=== PATIENT | female | born 2005 | race Two or more races ===

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

== ENCOUNTER 2024-10-16 17:03 | Emergency (ER) | payer MEDICAID ==
[~2024-10-16] VITALS: Ht 160 cm; Wt 74.3 kg
--- NOTE | 2024-10-16 17:25 | ED.PDOC ---
History of Present Illness HPI Comments 19F presents to the ER w/ no prior Hx associated to the c/c of a rash. Pt reports on having a rash on her neck/upper chest last night and has not gone away. The pt assumes on it being an allergic reaction. Pt notes that she has not changed anything in the last couple of days and even took Benadryl. Denies ch ills, fever, N/V/D< SOB, CP or other associated symptoms, modifiers, or recent injuries at this time. 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 History Family History Family History: Reviewed,noncontributory to illness, Unknown Social History Smoker: Non-Smoker Alcohol: Denies ETOH Use Drugs: Denies Drug Use Lives In: Home Constitutional: denies: chills, diaphoresis, fatigue, fever, malaise, sweats, weakness, others EENTM: denies: blurred vision, double vision, ear bleeding, ear discharge, ear drainage, ear pain, ear ringing, eye pain, eye redness, hearing loss, mouth pain, mouth swelling, nasal discharge, nose bleeding, nose congestion, nose pain, photophobia, tearing, throat pain, throat swelling, voice changes, others Respiratory: denies: cough, hemoptysis, orthopnea, SOB at rest, shortness of breath, SOB with excertion, stridor, wheezing, others Cardiovascular: denies: chest pain, dizzy spells, diaphoresis, Dyspnea on exertion, edema, irregular heart beat, left arm pain, lightheadedness, palpitations, PND, syncope, others Gastrointestinal: denies: abdomen distended, abdominal pain, blood streaked bowels, constipated, diarrhea, dysphagia, difficulty swallowing, hematemesis, melena, nausea, poor appetite, poor fluid intake, rectal bleeding, rectal pain, vomiting, others Genitourinary: denies: abnormal vagina bleeding, burning, dyspareunia, dysuria, flank pain, frequency, hematuria, incontinence, pain, , vagina discharge, urgency, others Neurological: denies: dizziness, fainting, headache, left sided numbness, left sided weakness, numbness, paresthesia, pre-existing deficit, right sided numbness, right sided weakness, seizure, speech problems, tingling, tremors, weakness, others Musculoskeletal: denies: back pain, gout, joint pain, joint swelling, muscle pain, muscle stiffness, neck pain, others Integumetry: reports: rash; denies: bruises, change in color, change in hair/nails, dryness, laceration, lesions, lumps, wounds, others Allergic/Immunocompromised: denies: Difficulty Healing, Frequent Infections, Hives, Itching, others Hematologic/Lymphatic: denies: anemia, blood clots, easy bleeding, easy bruising, swollen glands, others Endocrine: denies: excessive hunger, excessive sweating, excessive thirst, excessive urination, flushing, intolerance to cold, intolerance to heat, unexplained weight gain, unexplained weight loss, others Psychiatric: denies: anxiety, bipolar disorder, depression, hopeless, panic disorder, schizophrenia, sleepless, suicidal, others All Other Systems: Reviewed and Negative Physical Exam Exam Comments Throat clear, no tongue swelling, mouth clear, redness to from rash on the neck and upper chest General Appearance: No Apparent Distress, Normal HEENT: Normal ENT Inspection, Pharynx Normal, TMs Normal Neck: Full Range of Motion, Non-Tender, Normal, Normal Inspection Respiratory: Chest Non-Tender, Lungs Clear, No Accessory Muscle Use, No Respiratory Distress, Normal Breath Sounds Cardiovascular: No Edema, No JVD, No Murmur, No Gallop, Normal Peripheral Pulses, Regular Rate/Rhythm Breast Exam: Deferred Gastrointestinal: No Organomegaly, Non Tender, No Pulsatile Mass, Normal Bowel Sounds, Soft Genitalia: Deferred Pelvic: Deferred Rectal: Deferred Extremities: No calf tenderness, Normal capillary refill, Normal inspection, Normal range of motion, Non-tender, No pedal edema Musculoskeletal : Apperance: Normal Neurologic: Alert, mems process engineer II-XII nml as Tested, No Motor Deficits, Normal Affect, Normal Mood, No Sensory Deficits Cerebellar Function: Normal Reflexes: Normal Skin: Dry, Rash (On the neck/upper chest), Warm Lymphatic: No Adenopathy Was a procedure done? Was a procedure done?: No Differential Dx Considerations may include: urticaria, cellulitis, anaphylaxis, eczema, parasitosis, insect envenomation X-Ray, Labs, Meds, VS Vital Signs Date Time Temp Pulse Resp B/P (MAP) Pulse Ox O2 Delivery O2 Flow Rate FiO2 10/16/24 17:07 97.6 60 16 121/47 (71) 0 Time of 1ST Reevaluation: 17:45 Reevaluation 1ST: Unchanged Time of 2ND Reevaluation: 17:34 Reevaluation 2ND: Improved Patient Education/Counseling: Diagnosis, Treatment, Prognosis, Need For Follow Up Family Education/Counseling: No Family Present Departure 1 Departure Time of Disposition: 17:35 Impression: Primary Impression: Urticaria Disposition: 01 HOME / SELF CARE / HOMELESS Condition: Good e-Prescriptions Famotidine (PEPCID TABLET) 20 Mg Tb 1 TAB PO BID for 3 Days, #6 TAB 5 Refills Prov: ANAYA HOFFMANN MD 10/16/24 Diphenhydramine Hcl (Benadryl Allergy) 25 Mg Cap 2 CAP PO Q6HP PRN for 3 Days, #12 CAP 2 Refills Prov: ANAYA HOFFMANN MD 10/16/24 Prednisone (Prednisone) 20 Mg Tab 20 MG PO DAILY for 3 Days, #3 MG Prov: ANAYA HOFFMANN MD 10/16/24 Discharged With: Self Critical Care Note Critical Care Time?: No Stability Stability form required: No I personally scribed for ANAYA HOFFMANN MD ([email or web address]) on 10/16/24 at 17:24. Electronically submitted by Siddharth Maynard ([email or web address]). ANAYA HOFFMANN MD Oct 16, 2024 17:24
[2024-10-16] MEDS ORDERED: PRED20TA2 PO (17:37)
[2024-10-16] MEDS ORDERED: DIPH25CA66 PO (17:37)
[2024-10-16] MEDS ORDERED: FAMO20TA10 PO (17:37)
[2024-10-16] MEDS: DexAMETHasone 4 MG TAB PO ONE (17:42)
[2024-10-16] MEDS: diphenhdrAMINE HCL 25 MG CAP PO ONE (17:42)
[2024-10-16 17:47] VITALS: BP 103/60; PULSE 60; RESP 16; TEMP 98; O2SAT 98
== END 2024-10-16 17:53 | disposition home or self-care (01) ==
LOC: ER 17:03
DX: L50.9 Urticaria, unspecified (principal)
CPT/HCPCS: 99283; J8540